=== PATIENT | male | born 1950 | race Caucasian/White ===

== ENCOUNTER 2017-02-21 08:52 | Inpatient (IN) ==
[2017-02-21] MEDS ORDERED: DOCUSATE SODIUM 100 MG CAPSULE PO PRN (08:57)
[2017-02-21] MEDS ORDERED: ZALEPLON 5 MG CAPSULE PO PRN (08:57)
[2017-02-21] MEDS ORDERED: LORazepam 1 MG TABLET PO PRN (08:57)
[2017-02-21] MEDS ORDERED: ONDANSETRON 4 MG/2 ML VIAL IV PRN (08:57)
[2017-02-21] MEDS ORDERED: ACETAMINOPHEN 325 MG TABLET PO PRN (08:57)
[2017-02-21] MEDS ORDERED: SODIUM CHLORIDE 0.45% 1,000 ML IV SCH (09:00)
[2017-02-21] MEDS ORDERED: hydrALAZINE 20 MG/1 ML VIAL IV PRN (09:05)
[2017-02-21] MEDS ORDERED: FUROSEMIDE 40 MG/4 ML VIAL IV ONE (09:05)
[2017-02-21] MEDS ORDERED: POTASSIUM CHLORIDE 20 MEQ TABLET PO ONE (09:06)
[2017-02-21] MEDS ORDERED: LOSARTAN 25 MG TABLET PO SCH (09:30)
[2017-02-21] MEDS: ASPIRIN EC 81 MG TABLET PO SCH (11:12)
[2017-02-21] MEDS: NICOTINE 21 MG/24 HR PATCH TRANSDERM SCH (11:12)
[2017-02-21] MEDS: ATORVASTATIN 80 MG TABLET PO SCH (11:12)
[2017-02-21] MEDS: PANTOPRAZOLE 40 MG TABLET PO SCH (11:13)
[2017-02-21] MEDS: CARVEDILOL 3.125 MG TABLET PO SCH ×2 (11:13→20:59)
[2017-02-21 11:28] LABS: Basophils # 0.1 10*3/uL (0.0-0.2); Basophils % 0.8 % (0.0-0.8); Eosinophils # 0.2 10*3/uL (0.0-0.87); Eosinophils % 1.9 % (0.00-10.9); Hematocrit 40.9 VOL% (42.0-52.0); Hemoglobin 13.9 GM/DL (14.0-18.0); Immature Granulocytes % 2.1 %; Immature Granulocytes Absolute 0.24 #; Lymphocytes # 1.7 10*3/uL (1.4-4.0); Lymphocytes % 14.8 % (21.2-54.2); Mean Corpuscular Hemoglobin 30 PG (27-34); Mean Corpuscular Volume 89.5 FL (87-102); Mean Platelet Volume 9.7 FL (9.6-12.0); Monocytes # 1.5 10*3/uL (0.11-0.8); Neutrophils # 7.8 10*3/uL (1.4-7.4); Neutrophils % 67.4 % (38.7-73.9); Platelet Count 441 T/CUMM (130-400); Red Blood Count 4.57 MC/CUMM (3.8-5.5); Red Cell Distribution Width 14.7 % (9.3-17.3); White Blood Count 11.6 T/CUMM (4-12)
[2017-02-21 11:43] LABS: Apearance,Urine CLEAR (Clear); Bilirubin,Urine Negative (Negative); Blood, Urine Negative (Negative); Glucose,Urine (UA) Negative (Negative); Ketones,Urine Negative (Negative); Nitrite,Urine Negative (Negative); Protein,Urine Negative; RBC,Urine <1 /HPF (0-4); Urine Color Colorless (Yellow); Urine Specific Gravity 1.002 (1.001-1.035); Urine Urobilinogen < 2.0 EU/DL (0.2-1.0); WBC,Urine 4 /HPF (0-6)
[2017-02-21] MEDS: ENOXAPARIN 40 MG/0.4 ML SYRINGE SUBCUT SCH (11:56)
[2017-02-21 12:13] LABS: Blood Urea Nitrogen 8 MG/DL (7-18); Calcium 9.8 MG/DL (8.5-10.1); Cholesterol 144 MG/DL (50-200); Glucose 88 MG/DL (74-106); HDL Cholesterol 63 MG/DL (40-60); Osmolality,Calculated 264.2 MOS/KG (273-304); Potassium 5.1 MMOL/L (3.5-5.1); Risk Ratio 2.29; Sodium 134 MMOL/L (136-145); Triglycerides 93 MG/DL (2-150); Troponin I Only < 0.015 NG/ML (0.00-0.045); VLDL CHOLESTEROL 18.6 MG/DL
--- NOTE | 2017-02-21 12:47 | Order Completion Report ---
See report scanned to EMR
--- NOTE | 2017-02-21 12:48 | History and Physical Update ---
Sedation H&P Update - History and Physical H&P was reviewed, the patient examined and there: are no changes in the patients condition since last H&P was completed. - Dictation Physical: refer to scanned H&P, refer to H&P completed by admitting physician - Physical Exam Mental Status: alert and oriented Heart: other (afib with rate controlled. Exam without change) Lung: clear to auscultation Abdomen: within normal limits Vitals: within normal limits - Sedation Plan for Sedation: moderate Patient Consent: Procedure disscussed with patient and patinet has consented., Risks and benefits were discussed with patient,including infection,, bleeding, injury to surrounding structures, seizure, temporary nerve, Patient understands and accepts potential risks/benefits and agrees to, proceed. ASA Class: III Airway Assessment: Class III: Soft palate, base of uvula visible
--- NOTE | 2017-02-21 12:55 | Event Note ---
Marketing Production Coordinator: Dr. Flaherty Mr. Alanis is a 66 y/o WM who was admitted from the clinic for progressive heart failure symptomatology. He has risk factors significant for: hypertension , tobacco use (smokes daily), family history of premature CAD. He has recently been diagnosed with new onset atrial fibrillation. He has had progressive dyspnea over the past 4-6 weeks and appeared to be in acute decompensated heart failure with NYHA Class 3 symptoms at his clinic visit. Risks and benefits of left heart catheterization were discussed with the patient and it was recommended he be admitted for further evaluation of new onset heart failure with left heart catheterization, selective coronary angiography, and possible percutaneous coronary intervention this afternoon. An echocardiogram is pending. Labs reveal negative troponin, H&H 13.9 and 40.9, potassium 5.1, creatinine 0.8, osmolality 264.2. Lipid profile reveals triglycerides 93, cholesterol 144, LDL 60, HDL 63. Tsh 1.99. His home medications have been continued including aspirin and losartan. He has also been started on low dose beta katt and statin. Blood pressure is currently mildly elevated. We will continue to monitor and adjust medications accordingly. Mr. Alanis denies any needs at the present time. We will continue to monitor and await results from echocardiogram and C.
--- NOTE | 2017-02-21 13:06 | XRay Report ---
XR chest 2V Indication: Shortness of breath Comparison: None available Findings: The heart and mediastinum are normal in size and configuration. The pulmonary vascularity is normal in caliber. Lung volumes are increased with prominent bronchial markings. No lung infiltrates, effusions, pneumothorax or other abnormality is demonstrated. Impression: Chronic lung changes. No acute process. PROCEDURE INTERPRETED AT [facility] DEPARTMENT OF RADIOLOGY Final Report Signed by: Dr. Tunde Kilpatrick
--- NOTE | 2017-02-21 13:20 | Order Completion Report ---
See report scanned to EMR
[2017-02-21] MEDS ORDERED: DIAZEPAM 5 MG TABLET PO ONE (15:00)
[2017-02-21] MEDS ORDERED: diphenhydrAMINE CAP 25 MG CAPSULE PO ONE (15:00)
[2017-02-21] MEDS ORDERED: LIDOCAINE 1% 20 ML VIAL ONE (15:11)
[2017-02-21] MEDS ORDERED: HEPARIN/NACL 0.9% 2 UNITS/ML 1,000 ML IV ONE (15:11)
[2017-02-21] MEDS ORDERED: fentaNYL 100 MCG/2 ML VIAL ONE (15:20)
[2017-02-21] MEDS ORDERED: MIDAZOLAM 2 MG/2 ML VIAL ONE ×2 (15:20→15:28)
[2017-02-21] MEDS ORDERED: ENOXAPARIN 60 MG/0.6 ML SYRINGE ONE (15:35)
[2017-02-21] MEDS ORDERED: BIVALIRUDIN 250 MG VIAL IV ONE (15:35)
[2017-02-21] MEDS ORDERED: EPTIFIBATIDE 20,000 MCG/10 ML VIAL ONE (16:07)
[2017-02-21] MEDS ORDERED: EPTIFIBATIDE 75 MG/100 ML BOTTLE IV ONE (16:09)
[2017-02-21] MEDS ORDERED: ADENOSINE 90 MG/30 ML VIAL IV ONE (16:14)
[2017-02-21] MEDS ORDERED: HEPARIN/NACL 0.9% 2 UNITS/ML 500 ML IV ONE (16:19)
[2017-02-21] MEDS ORDERED: CLOPIDOGREL 300 MG TABLET ONE (16:25)
[2017-02-21] MEDS: POTASSIUM CHLORIDE 20 MEQ TABLET PO SCH (20:59)
[2017-02-21] MEDS ORDERED: ATORVASTATIN 40 MG TABLET PO SCH (21:00)
[2017-02-22 06:45] LABS: Basophils # 0.1 10*3/uL (0.0-0.2); Basophils % 0.8 % (0.0-0.8); Eosinophils # 0.5 10*3/uL (0.0-0.87); Eosinophils % 4.9 % (0.00-10.9); Immature Granulocytes % 1.1 %; Immature Granulocytes Absolute 0.12 #; Lymphocytes # 1.5 10*3/uL (1.4-4.0); Lymphocytes % 14.3 % (21.2-54.2); Mean Corpuscular HGB Conc 33.3 GM/DL (32-36); Mean Corpuscular Hemoglobin 30 PG (27-34); Mean Corpuscular Volume 90.1 FL (87-102); Monocytes # 1.4 10*3/uL (0.11-0.8); Monocytes % 13.5 % (1.7-12.7); Neutrophils % 65.4 % (38.7-73.9); Platelet Count 411 T/CUMM (130-400); Red Blood Count 4.33 MC/CUMM (3.8-5.5); Red Cell Distribution Width 14.7 % (9.3-17.3); White Blood Count 10.7 T/CUMM (4-12)
[2017-02-22 07:09] LABS: Calcium 8.8 MG/DL (8.5-10.1); Potassium 4.8 MMOL/L (3.5-5.1)
--- NOTE | 2017-02-22 08:48 | Sleep Medicine Consult ---
Assessment and Plan (1) Unspecified sleep apnea Status: Acute Assessment and plan: His history certainly is concerning for sleep apnea and we will get him scheduled for sleep evaluation as soon as possible. Thank you for this consult and the opportunity to participate in his care. Given that he lives in [place], follow-up will be scheduled at the [facility] sleep clinic. Current Visit: Yes (2) Essential hypertension Status: Acute Assessment and plan: The prevalence rate for obstructive sleep apnea patients with hypertension is 35 %. That rate can be as high as 80% in patients who require 4 or more medications for blood pressure control. Current Visit: Yes (3) Coronary artery disease Status: Acute Assessment and plan: I reviewed the [place] data from Lancet 2004 with the patient to their understanding. This study proved significant reduction in the risk of fatal and nonfatal cardiac events in patients with severe obstructive sleep apnea compliant with CPAP, in comparison with those noncompliant with CPAP for severe sleep apnea. Current Visit: Yes (4) Atrial fibrillation Status: Acute Assessment and plan: Untreated sleep apnea certainly can be an exacerbating factor to atrial fib. Treatment of obstructive sleep apnea can improve management of atrial fib in these patients. Current Visit: Yes History of Present Illness Chief complaint: Sleep apnea History of present illness: Mr. Alanis is a 66 year old male admitted for evaluation of progressive shortness of breath and lower extremity swelling with [place] heart classification 3 symptomatology. He had recently been diagnosed with new onset atrial fibrillation and underwent heart cath yesterday and required a stent. During his evaluation, it was noted that he had a long history of snoring and abnormal breathing during sleep. Dr. Flaherty contacted me for sleep evaluation. The patient usually retires about 10 PM and awakens between 5:55 in the morning. He awakens multiple times during the night to urinate. Both his daughters, who are nurses, and his notes that he is a loud snore and that he stops breathing during his sleep. They have noted increasing problems and recent years of his increasing daytime fatigue and sleepiness. He has gotten to the point that he sleeps in a recliner because of his breathing. He does have a past medical history of hypertension and a long history of heavy tobacco consumption. At its peak, he was smoking 3-4 packs a day. He resides in [place]. Home Medications Medication Instructions Recorded Confirmed Type Aspirin [Ecotrin] 81 mg PO DAILY 02/21/17 02/21/17 History Cyanocobalamin Tab [Vitamin B12 1,000 mcg PO DAILY 02/21/17 02/21/17 History Tab] Losartan Potassium 50 mg PO DAILY 02/21/17 02/21/17 History Allergies Allergy/AdvReac Type Severity Reaction Status Date / Time No Known Allergies Allergy Unverified 02/21/17 09:16 Review of systems: Otherwise unremarkable from a sleep medicine standpoint. Exam (Pulmonay) H&P - Constitutional Vitals: Period Temp Pulse Resp BP Sys/[place] Pulse Ox Last 24 Hr 97.3 F-97.8 F 71-86 16-20 131-188/74-97 92-97 Exam: He is alert and responsive in no acute distress. Pupils equal round reactive to light and accommodation. Extraocular movements intact. Oropharynx with a class III Mallampati exam. Neck is supple without adenopathy or thyromegaly. No supraclavicular adenopathy is noted. Chest with symmetrical breath sounds without focal wheeze, rhonchi, or rales. Cardiac exam reveals regular rhythm without murmur or gallop. Abdomen soft nontender without palpable hepatosplenomegaly or mass. Extremities are without clubbing, cyanosis, or edema. Neurologically, he is grossly intact. He moves all extremities with good strength and ambulates with a normal gait. Medical,Surgical,& Family Hx - Medical History Cardio: History of: CHF, Hypertension Neurology: History of: Cerebrovascular Accident No history of: Seizures Rheumatology: History of;: Gout - Surgical History HEENT Surgeries: Surgical HX of: Eye Surgery (cataracts) Reproductive Surgeries: Patient denies;: Genitourinary Surgery - Family History Family History: Reports;: Family Cancer (brother and sister), Family Heart Disease (father) - Social History Smoking Status: Current every day smoker Frequency of Alcohol Use: Frequently Type of Drug Use: None Results - Labs CBC & BMP: 02/22/17 05:17 02/22/17 05:17 Lab Results: I have reviewed the past 24 hour labs Labs: TSH was within normal limits. Quality Measures - VTE Contraindication to Pharmacological VTE Prophylaxis: Already on Theraputic Agent , No Prophylaxis Needed Specialty Discharge - Follow Up or Referrals
[2017-02-22] MEDS: POTASSIUM CHLORIDE 20 MEQ TABLET PO SCH ×2 (10:28→21:05)
[2017-02-22] MEDS: CARVEDILOL 3.125 MG TABLET PO SCH (10:28)
[2017-02-22] MEDS: ATORVASTATIN 80 MG TABLET PO SCH (10:28)
[2017-02-22] MEDS: PANTOPRAZOLE 40 MG TABLET PO SCH (10:28)
[2017-02-22] MEDS: CLOPIDOGREL 75 MG TABLET PO SCH (10:28)
[2017-02-22] MEDS: NICOTINE 21 MG/24 HR PATCH TRANSDERM SCH (10:28)
[2017-02-22] MEDS: ENOXAPARIN 40 MG/0.4 ML SYRINGE SUBCUT SCH (10:29)
[2017-02-22] MEDS: FUROSEMIDE 40 MG/4 ML VIAL IV SCH ×2 (10:29→16:28)
[2017-02-22] MEDS: ASPIRIN EC 81 MG TABLET PO SCH (10:31)
[2017-02-22] MEDS: LOSARTAN 50 MG TABLET PO SCH (10:31)
--- NOTE | 2017-02-22 13:05 | Ultrasound Report ---
US arterial duplex LE RT Clinical Information: right groin bruit s/p LHC Comparison: None available Technique: Targeted ultrasound evaluation of the right groin soft tissues and vasculature was performed with grayscale, color Doppler and spectral analysis. Findings: Common femoral artery and vein appear widely patent. There is no evidence of overlying vascular abnormality or pseudoaneurysm. Common femoral vein is compressible with normal phasicity on spectral analysis. There is no evidence of arteriovenous fistula. Common femoral artery also demonstrates a normal waveform. Impression: No evidence of vascular complication following heart catheterization. PROCEDURE INTERPRETED AT [facility] DEPARTMENT OF RADIOLOGY Final Report Signed by: Jose Duque
[2017-02-22] MEDS ORDERED: CARVEDILOL 12.5 MG TABLET PO ONE (13:18)
[2017-02-22] MEDS ORDERED: hydrALAZINE 10 MG TABLET PO SCH (15:00)
--- NOTE | 2017-02-22 17:14 | Cardiology Progress Note ---
Assessment and Plan - Time spent with patient Time spent with patient: Less than 30 minutes Time spent discussing smoking cessation with patient: 3 to 10 minutes (1) Atrial fibrillation Status: Acute Assessment and plan: See plan of care listed below. Current Visit: Yes Qualifiers: Atrial fibrillation type: persistent Qualified Code(s): I48.1 - Persistent atrial fibrillation (2) Congestive heart failure Status: Acute Assessment and plan: See plan of care listed below. Current Visit: Yes Qualifiers: Congestive heart failure type: diastolic Congestive heart failure chronicity: acute Qualified Code(s): I50.31 - Acute diastolic (congestive) heart failure (3) Coronary artery disease Status: Acute Assessment and plan: See plan of care listed below. Current Visit: Yes (4) Essential hypertension Status: Chronic Assessment and plan: See plan of care listed below. Current Visit: Yes (5) Unspecified sleep apnea Status: Acute Assessment and plan: See plan of care listed below. Current Visit: Yes (6) Tobacco abuse Status: Chronic Assessment and plan: See plan of care listed below. Current Visit: Yes Cardiology - PN: Subj Interval history: Bead Preparer: Dr. Flaherty SUMMARY: Mr. Alanis is a 66 y/o WM who was admitted from the clinic for progressive heart failure symptomatology. He has risk factors significant for: hypertension, tobacco use (smokes daily), family history of premature CAD. He has recently been diagnosed with new onset atrial fibrillation. He has had progressive dyspnea over the past 4-6 weeks and appeared to be in acute decompensated heart failure with NYHA Class 3 symptoms at his clinic visit. Risks and benefits of left heart catheterization were discussed with the patient and it was recommended he be admitted for further evaluation of new onset heart failure. FEBRUARY 22, 2017: Mr. Alanis is seen sitting up in the chair at the bedside today. He received a stent to the midRCA by Dr. Flaherty yesterday. He has no complaints this morning and is asking to go home. Echocardiogram done 02/21/17 revealed preserved EF 60%, systolic flattening of the IVS suggesting right sided pressure overload, severe pulmonary hypertension, biatrial enlargement, mild to moderate AI, mild MR, heavy calcification in the thoracic aorta. He has been ambulating without difficulty, but upon inspection of his right groin, he is noted to have a right femoral bruit. We obtained a right groin ultrasound which revealed no post cath vascular complication. He remains slightly volume overloaded and remains on 80mg IV Lasix BID. We will transition him to PO. As sleep medicine plans to evaluate him tonight, we will plan for discharge in the morning. His blood pressure remains uncontrolled and he was noted to have severe pulmonary hypertension on his echo. We are continuing to adjust patient' s medications. Due to his severe pulmonary hypertension, we will maximize his beta katt and continue with ARB. We have also added hydralazine to his medication regimen. Mr. Alanis's right groin dressing was removed and his cath site is without bleeding or hematoma. Bruit is stable. Femoral pulse is 3+. Distal pulses are present and palpable. Groin precautions were discussed and the patient and his verbalize understanding. As long as he remains stable through the night, we will anticipate discharge first thing in the morning to follow up with Dr. Flaherty in 2-3 weeks. REVIEW OF SYSTEMS: CARDIAC: Denies chest pain. RESPIRATORY: Denies shortness of breath. IMPRESSION/PLAN: - PERSISTENT ATRIAL FIBRILLATION: Continues to be in atrial fibrillation with well controlled rate. Started on anticoagulation with Eliquis 5mg po BID. Continue beta katt. I have stressed the importance of avoiding caffeine and tobacco and he verbalizes understanding. - CONGESTIVE HEART FAILURE: Slowly improving. Will transition his Lasix to PO. - CORONARY ARTERY DISEASE: LHC on 02/21/17 revealed two-vessel CAD. Patient is status post successful PCI of the mid RCA. He was also noted to have a moderate range highly calcified mid LAD stenosis of 60%. He will continue with risk factor modification and dual antiplatelet therapy for minimum of 1 year. Clopidogrel was used as the second antiplatelet in anticipation of full anticoagulation for atrial fibrillation. CHADSVASC score is 4. Since he will need anticoagulation, we will stop his aspirin and place him on Eliquis 5mg po BID. - HYPERTENSION: Uncontrolled. We are continuing to adjust patient's medications. Due to his severe pulmonary hypertension, we will maximize his beta katt and continue with ARB. We have also added hydralazine to his medication regimen. Will continue to monitor and adjust accordingly. - UNSPECIFIED SLEEP APNEA: Patient has been seen in consultation by sleep medicine and will undergo sleep evaluation tonight. - TOBACCO ABUSE: Greater than 5 minutes was spent discussing the harmful effects of tobacco and the need for cessation. Exam (Progress Note) - Constitutional Vitals: Period Temp Pulse Resp BP Sys/[place] Pulse Ox Last 24 Hr 97.3 F-98.4 F 71-86 16-20 131-188/74-97 92-97 Exam: General appearance: Appears well. Pleasant and cooperative. Overweight, no acute distress. Head exam: Present: normal inspection, normocephalic, atraumatic. Absent: hematoma, laceration Eye exam: Present: EOMI. Absent: conjunctival injection, nystagmus, periorbital swelling, scleral icterus, laceration to eyelids, jaundice Pupils: Present: PERRL. Absent: constricted, dilated, fixed, irregular, unequal ENT exam: Present: normal exam, normal external ear exam, mucous membranes moist. Neck exam: Present: normal inspection, midline trachea. Absent: masses, lymphadenopathy, tenderness, thyromegaly, carotid bruit Respiratory exam: Present: clear to auscultation bilaterally. Absent: accessory muscle use, chest wall tenderness, rales, rhonchi, wheezing. Cardiovascular exam: Present: Irregular rhythm, well controlled rate. 2/7 systolic murmur consistent with MR. Absent: gallop, JVD, rubs GI/Abdominal exam: Present: normal bowel sounds, soft. Absent: distended, firm , hernia, mass, tenderness. Extremities exam: Present: Normal Gait, No Clubbing, No Cyanosis, Upper Extr. Pulses 2+, Lower Extr. Pulses 2+, 1+ BLE edema. Capillary refill less than 3 seconds. Musculoskeletal: Present: No Fluid Collection, No Pain, Normal Range of Motion Back exam: Present: normal inspection. Absent: muscle spasm, vertebral tenderness Neurological exam: Present: awake, alert, oriented X3, Moves all extremities well without hemiparesis or paralysis. Grossly intact without resting or essential tremor Psychiatric exam: Present: normal affect, normal mood Skin exam: Present: normal color, warm, dry, intact. Absent: cyanosis, diaphoretic, rash, urticaria Right groin: Open to air. No bleeding or hematoma. Stable bruit. Femoral pulse 3 +. Distal pulses present and palpable. Result/EKG - Labs CBC & BMP: 02/22/17 05:17 02/22/17 05:17 Lab Results: I have reviewed the past 24 hour labs Labs: Laboratory Results - last 24 hr 02/22/17 02/22/17 05:17 05:17 WBC 10.7 RBC 4.33 Hgb 13.0 L Hct 39.0 L MCV 90.1 MCH 30 MCHC 33.3 RDW 14.7 Plt Count 411 H MPV 10.0 Neut % (Auto) 65.4 Lymph % (Auto) 14.3 L [place] % (Auto) 13.5 H Eos % (Auto) 4.9 Baso % (Auto) 0.8 Neut # (Auto) 7.0 Lymph # (Auto) 1.5 [place] # (Auto) 1.4 H Eos # (Auto) 0.5 Baso # (Auto) 0.1 Immature Gran % 1.1 Nucleated RBC % 0.0 Immature Gran # 0.12 Nucleated RBCs # 0.00 Immature Plt Fraction 0.0 Sodium 136 Potassium 4.8 Chloride 101 Carbon Dioxide 30 Anion Gap 9.8 BUN 9 Creatinine 0.90 GFR Calculation 98 BUN/Creatinine Ratio 10.00 Glucose 89 Calculated Osmolality 269.0 L Calcium 8.8 - EKG EKG results: interpreted by me EKG shows: atrial fibrillation Quality Measures - VTE Contraindication to Pharmacological VTE Prophylaxis: Already on Theraputic Agent , No Prophylaxis Needed Specialty Discharge - Follow Up or Referrals Follow up with: Livier Flaherty DO [Physician] - 2 Weeks (Follow up with CBC, BMP w/ Mg, and EKG. )
--- NOTE | 2017-02-22 17:28 | Discharge Summary ---
Hospital Course - Hospital Course Hospital Course: Ethylbenzene Cracking Supervisor: Dr. Flaherty SUMMARY: Mr. Alanis is a 66 y/o WM who was admitted from the clinic for progressive heart failure symptomatology. He has risk factors significant for: hypertension, tobacco use (smokes daily), family history of premature CAD. He has recently been diagnosed with new onset atrial fibrillation. He has had progressive dyspnea over the past 4-6 weeks and appeared to be in acute decompensated heart failure with NYHA Class 3 symptoms at his clinic visit. It was recommended he be admitted for further evaluation of new onset heart failure. LHC on 02/21/17 revealed two-vessel CAD. Patient is status post successful PCI of the mid RCA. Echocardiogram done 02/21/17 revealed preserved EF 60%, systolic flattening of the IVS suggesting right sided pressure overload , severe pulmonary hypertension, biatrial enlargement, mild to moderate AI, mild MR, heavy calcification in the thoracic aorta. Post cath, he was noted to have a right femoral bruit. Ultrasound revealed no post cath vascular complication. Sleep medicine saw him in consultation and sleep evaluation was performed the night before discharge. He was started on appropriate medical therapy for his new onset CHF, atrial fibrillation, and coronary artery disease. Due to his severe pulmonary hypertension, we will maximize his beta katt. We have also added hydralazine to his medication regimen. He will need dual antiplatelet therapy for a minimum of 1 year. Clopidogrel was used as the second antiplatelet in anticipation of full anticoagulation for atrial fibrillation. CHADSVASC score is 4. Since he will need anticoagulation, we stopped his aspirin and placed him on Eliquis 5mg po BID. He has diuresed well during hospitalization and will continue on PO lasix at discharge. Greater than 5 minutes was spent discussing the harmful effects of tobacco and the need for cessation. I have stressed the importance of avoiding caffeine and tobacco related to his atrial fibrillation and he verbalizes understanding. Groin precautions were discussed and the patient and his verbalize understanding. Mr. Alanis's right groin dressing was removed and his cath site is without bleeding or hematoma. Bruit is stable. Femoral pulse is 3+. Distal pulses are present and palpable. Mr. Alanis is agreeable to proceeding with tobacco cessation with the aid of [employer] [facility] [employer]. I have sent in prescriptions for a 6 week supply of 21mg/24 hour patches followed by 2 week supply of 14mg/24hour patches and a 2 week supply of 7mg/24 hour patches. He will follow up with Dr. Flaherty in 1-2 weeks with CBC, BMP w/ Mg, and EKG. He has been instructed to monitor his weight daily and notify his physician if he gains more than 2-3# in 24 hours or 5# in 1 week. - Time spent with patient Time with patient DS: Greater than 30 minutes (due to assessment, plan, documentation, medication review, and discussion with patient/) Time spent discussing smoking cessation with patient: more than 10 minutes Diagnosis - Discharge Diagnosis (1) Atrial fibrillation Status: Acute (2) Congestive heart failure Status: Acute (3) Coronary artery disease Status: Acute (4) Essential hypertension Status: Chronic (5) Unspecified sleep apnea Status: Acute (6) Tobacco abuse Status: Chronic Specialty Discharge - Follow Up or Referrals Follow up with: Livier Flaherty DO [Physician] - 1 Week (Follow up with CBC, BMP w/ Mg, and EKG in 1-2 weeks. ) Discharge Plan - Discharge Data Disposition: Disch To Home/Self Care Condition at Discharge: Stable Discharge Diet: heart healthy Activity: no lifting (Do not lift over 5 pounds x1 week. ) Hygiene: may shower (Do not submerge cath site beneath water x 1 week. Keep site clean/dry and monitor for s/s of infection. ) Weight Bearing at Discharge: full weight bearing Driving: not for (24 hours) Contact your physician if you experience:: fever over 101, Difficulty voiding, Redness or swelling, Nausea/Vomiting, Shortness of breath, Bleeding, pain uncontrolled by pain medications - Discharge Medications New Atorvastatin [Lipitor] 80 mg PO DAILY #30 tablet Carvedilol [Coreg] 25 mg PO BID #60 tablet Furosemide Tab [Lasix Tab] 80 mg PO BID DIURETIC #60 tablet Nicotine 21 mg/24 Hr Patch [Nicoderm CQ 21 mg/24 hr Patch] 1 patch TRANSDERM DAILY #42 patch Nicotine [Nicotine 14 mg/24 Hr Patch] 1 patch TRANSDERM DAILY #14 patch Potassium Chloride Cap/Tab [K Dur] 20 meq PO BID #60 tablet hydrALAZINE TAB [Apresoline Tab] 25 mg PO TID #90 tablet Apixaban [Eliquis] 5 mg PO BID #60 tablet Clopidogrel [Plavix] 75 mg PO DAILY #30 tablet Nicotine 7 mg/24 Hr Patch [Nicoderm CQ 7 mg/24 hr Patch] 1 patch TRANSDERM DAILY #14 patch Continue Cyanocobalamin Tab [Vitamin B12 Tab] 1,000 mcg PO DAILY Losartan Potassium 50 mg PO DAILY Discontinued Aspirin [Ecotrin] 81 mg PO DAILY - Follow Up or Referral Follow Up: Livier Flaherty DO [Physician] - 2 Weeks (Follow up with CBC, BMP w/ Mg, and EKG. ) - Forms/Instructions Instructions: Left Heart Catheterization (DC), Heart Healthy Diet (GEN), Cigarette Smoking and Your Health (GEN), Coronary Intravascular Stent Placement (DC), How to Stop Smoking, Clother In (GEN) Exam - Constitutional Vitals: Period Temp Pulse Resp BP Sys/[place] Pulse Ox Last 24 Hr 97.3 F-98.4 F 71-84 16-20 131-188/74-97 92-97 Exam: General appearance: Appears well. Pleasant and cooperative. Overweight, no acute distress. Head exam: Present: normal inspection, normocephalic, atraumatic. Absent: hematoma, laceration Eye exam: Present: EOMI. Absent: conjunctival injection, nystagmus, periorbital swelling, scleral icterus, laceration to eyelids, jaundice Pupils: Present: PERRL. Absent: constricted, dilated, fixed, irregular, unequal ENT exam: Present: normal exam, normal external ear exam, mucous membranes moist. Neck exam: Present: normal inspection, midline trachea. Absent: masses, lymphadenopathy, tenderness, thyromegaly, carotid bruit Respiratory exam: Present: clear to auscultation bilaterally. Absent: accessory muscle use, chest wall tenderness, rales, rhonchi, wheezing. Cardiovascular exam: Present: Irregular rhythm, well controlled rate. 2/7 systolic murmur consistent with MR. Absent: gallop, JVD, rubs GI/Abdominal exam: Present: normal bowel sounds, soft. Absent: distended, firm , hernia, mass, tenderness. Extremities exam: Present: Normal Gait, No Clubbing, No Cyanosis, Upper Extr. Pulses 2+, Lower Extr. Pulses 2+, 1+ BLE edema. Capillary refill less than 3 seconds. Musculoskeletal: Present: No Fluid Collection, No Pain, Normal Range of Motion Back exam: Present: normal inspection. Absent: muscle spasm, vertebral tenderness Neurological exam: Present: awake, alert, oriented X3, Moves all extremities well without hemiparesis or paralysis. Grossly intact without resting or essential tremor Psychiatric exam: Present: normal affect, normal mood Skin exam: Present: normal color, warm, dry, intact. Absent: cyanosis, diaphoretic, rash, urticaria Right groin: Open to air. No bleeding or hematoma. Stable bruit. Femoral pulse 3 +. Distal pulses present and palpable. Discharge Results Labs on day of discharge: Labs from last 24 hours 02/22/17 02/22/17 05:17 05:17 WBC 10.7 RBC 4.33 Hgb 13.0 L Hct 39.0 L MCV 90.1 MCH 30 MCHC 33.3 RDW 14.7 Plt Count 411 H MPV 10.0 Neut % (Auto) 65.4 Lymph % (Auto) 14.3 L [place] % (Auto) 13.5 H Eos % (Auto) 4.9 Baso % (Auto) 0.8 Neut # (Auto) 7.0 Lymph # (Auto) 1.5 [place] # (Auto) 1.4 H Eos # (Auto) 0.5 Baso # (Auto) 0.1 Immature Gran % 1.1 Nucleated RBC % 0.0 Immature Gran # 0.12 Nucleated RBCs # 0.00 Immature Plt Fraction 0.0 Sodium 136 Potassium 4.8 Chloride 101 Carbon Dioxide 30 Anion Gap 9.8 BUN 9 Creatinine 0.90 GFR Calculation 98 BUN/Creatinine Ratio 10.00 Glucose 89 Calculated Osmolality 269.0 L Calcium 8.8 DS: Provider Date of admission: 02/21/17 09:16 Primary care physician: Rain Alan NP Attending physician on admission: Livier Flaherty DO Consults: 02/21/17 16:42 Consult to Cardiac Rehabilitation [CONS] Routine Reason for Cardiac Rehabilitation: Risk Factor Modification Other Consult Comment: Evaluate and recommend 02/21/17 16:45 Consult to Physician [CONS] Routine Comment: ROSA Consulting Provider: Deborah Styles 02/21/17 17:13 Consult to Sleep Center [CONS] Routine Reason for Sleep Center: Sleep Center Physician Consult Comment: ROSA Discharging clinician: TODD Zimmerman Expected date of discharge: 02/23/17
[2017-02-22] MEDS: hydrALAZINE 25 MG TABLET PO SCH (21:05)
[2017-02-22] MEDS: APIXABAN 5 MG TABLET PO SCH (21:05)
[2017-02-22] MEDS: CARVEDILOL 25 MG TABLET PO SCH (21:05)
[2017-02-23] MEDS ORDERED: FUROSEMIDE 80 MG TABLET PO SCH (08:00)
[2017-02-23 08:39] VITALS: BP 138/72
[2017-02-23] MEDS: hydrALAZINE 25 MG TABLET PO SCH (08:57)
[2017-02-23] MEDS: LOSARTAN 50 MG TABLET PO SCH (08:57)
[2017-02-23] MEDS: POTASSIUM CHLORIDE 20 MEQ TABLET PO SCH (08:57)
[2017-02-23] MEDS: ATORVASTATIN 80 MG TABLET PO SCH (08:57)
[2017-02-23] MEDS: APIXABAN 5 MG TABLET PO SCH (08:57)
[2017-02-23] MEDS: CLOPIDOGREL 75 MG TABLET PO SCH (08:57)
[2017-02-23] MEDS: NICOTINE 21 MG/24 HR PATCH TRANSDERM SCH (08:58)
[2017-02-23] MEDS: PANTOPRAZOLE 40 MG TABLET PO SCH (08:58)
[2017-02-23] MEDS: CARVEDILOL 25 MG TABLET PO SCH (08:58)
== END 2017-02-23 11:03 | disposition home or self-care (01) | DRG 246 ==
LOC: N.TELEN 09:16
PROVIDERS: ADMIT Internal Medicine Cardiovascular Disease; ATTEND Internal Medicine Cardiovascular Disease

== ENCOUNTER 2017-04-05 11:30 | Inpatient (IN) ==
[2017-04-05] MEDS ORDERED: ZALEPLON 5 MG CAPSULE PO PRN (11:42)
[2017-04-05] MEDS ORDERED: MAGNESIUM SULF RIDER 4 GM in PREMIX 1 EACH IV PRN (11:42)
[2017-04-05] MEDS ORDERED: MAGNESIUM SULF RIDER 2 GM in PREMIX 1 EACH IV PRN (11:42)
[2017-04-05] MEDS ORDERED: POTASSIUM CHLORIDE RIDER 10 MEQ in PREMIX 1 EACH IV PRN (11:42)
[2017-04-05] MEDS ORDERED: DOCUSATE SODIUM 100 MG CAPSULE PO PRN (11:42)
[2017-04-05] MEDS ORDERED: ONDANSETRON 4 MG/2 ML VIAL IV PRN (11:42)
[2017-04-05] MEDS: ALBUTEROL 2.5 MG/3 ML NEB RESP TX SCH ×2 (13:24→19:16)
[2017-04-05] MEDS: LEVOFLOXACIN INJ 750 MG in PREMIX 1 EACH IV SCH (14:43)
[2017-04-05] MEDS: BENZONATATE 100 MG CAPSULE PO SCH ×2 (14:44→21:07)
[2017-04-05] MEDS: guaiFENesin/DM ER 600-30 MG TABLET PO SCH ×2 (14:44→21:07)
[2017-04-05 15:05] LABS: Basophils % 0.5 % (0.0-0.8); Eosinophils # 0.8 10*3/uL (0.0-0.87); Hematocrit 40.3 VOL% (42.0-52.0); Hemoglobin 13.9 GM/DL (14.0-18.0); Immature Granulocytes % 0.5 %; Immature Granulocytes Absolute 0.04 #; Lymphocytes # 1.6 10*3/uL (1.4-4.0); Lymphocytes % 19.6 % (21.2-54.2); Mean Corpuscular HGB Conc 34.5 GM/DL (32-36); Mean Corpuscular Hemoglobin 30 PG (27-34); Mean Corpuscular Volume 85.9 FL (87-102); Mean Platelet Volume 10.3 FL (9.6-12.0); Monocytes # 0.8 10*3/uL (0.11-0.8); Monocytes % 9.3 % (1.7-12.7); Neutrophils # 4.9 10*3/uL (1.4-7.4); Neutrophils % 60.1 % (38.7-73.9); Platelet Count 348 T/CUMM (130-400); Red Blood Count 4.69 MC/CUMM (3.8-5.5); White Blood Count 8.1 T/CUMM (4-12)
[2017-04-05 15:25] LABS: Calcium 8.9 MG/DL (8.5-10.1); Osmolality,Calculated 255.2 MOS/KG (273-304); Potassium 4.5 MMOL/L (3.5-5.1)
[2017-04-05] MEDS: NICOTINE 21 MG/24 HR PATCH TRANSDERM PRN (15:35)
[2017-04-05] MEDS: FUROSEMIDE 80 MG TABLET PO SCH (15:35)
[2017-04-05] MEDS: CARVEDILOL 25 MG TABLET PO SCH (17:20)
[2017-04-05] MEDS: APIXABAN 5 MG TABLET PO SCH (21:07)
[2017-04-05] MEDS: POTASSIUM CHLORIDE 20 MEQ TABLET PO SCH (21:07)
[2017-04-05] MEDS: PRAMIPEXOLE 0.25 MG TABLET PO SCH (21:07)
[2017-04-05] MEDS: ATORVASTATIN 80 MG TABLET PO SCH (21:10)
[2017-04-06] MEDS: ALBUTEROL 2.5 MG/3 ML NEB RESP TX SCH ×4 (00:40→19:38)
[2017-04-06] MEDS: CARVEDILOL 25 MG TABLET PO SCH ×2 (08:21→16:18)
[2017-04-06] MEDS: LOSARTAN 50 MG TABLET PO SCH (08:22)
[2017-04-06] MEDS: FUROSEMIDE 80 MG TABLET PO SCH ×2 (08:22→16:18)
[2017-04-06] MEDS: BENZONATATE 100 MG CAPSULE PO SCH ×3 (08:22→21:25)
[2017-04-06] MEDS: POTASSIUM CHLORIDE 20 MEQ TABLET PO SCH ×2 (08:22→21:24)
[2017-04-06] MEDS: APIXABAN 5 MG TABLET PO SCH ×2 (08:22→21:24)
[2017-04-06] MEDS: CYANOCOBALAMIN 500 MCG TABLET PO SCH (08:22)
[2017-04-06] MEDS: guaiFENesin/DM ER 600-30 MG TABLET PO SCH ×2 (08:22→21:24)
[2017-04-06] MEDS: CLOPIDOGREL 75 MG TABLET PO SCH (08:22)
[2017-04-06] MEDS: LEVOFLOXACIN INJ 750 MG in PREMIX 1 EACH IV SCH (08:25)
[2017-04-06] MEDS ORDERED: diphenhydrAMINE CAP 25 MG CAPSULE PO PRN (11:37)
[2017-04-06] MEDS: NICOTINE 21 MG/24 HR PATCH TRANSDERM PRN (14:24)
[2017-04-06] MEDS: ACETAMINOPHEN 325 MG TABLET PO PRN (18:30)
[2017-04-06] MEDS: PRAMIPEXOLE 0.25 MG TABLET PO SCH (21:25)
[2017-04-06] MEDS: ATORVASTATIN 80 MG TABLET PO SCH (21:25)
[2017-04-07] MEDS: ALBUTEROL 2.5 MG/3 ML NEB RESP TX SCH ×4 (01:02→19:00)
[2017-04-07 07:39] LABS: Albumin 3.2 G/DL (3.4-5.0); Bilirubin,Total 0.9 MG/DL (0.2-1.0); Calcium 8.7 MG/DL (8.5-10.1); Osmolality,Calculated 256.1 MOS/KG (273-304); Potassium 4.3 MMOL/L (3.5-5.1); Total Protein 6.3 G/DL (6.4-8.3)
[2017-04-07] MEDS: BENZONATATE 100 MG CAPSULE PO SCH ×3 (09:11→21:09)
[2017-04-07] MEDS: LOSARTAN 50 MG TABLET PO SCH (09:11)
[2017-04-07] MEDS: APIXABAN 5 MG TABLET PO SCH ×2 (09:11→21:10)
[2017-04-07] MEDS: CARVEDILOL 25 MG TABLET PO SCH ×2 (09:11→16:36)
[2017-04-07] MEDS: POTASSIUM CHLORIDE 20 MEQ TABLET PO SCH ×2 (09:11→21:09)
[2017-04-07] MEDS: CLOPIDOGREL 75 MG TABLET PO SCH (09:11)
[2017-04-07] MEDS: guaiFENesin/DM ER 600-30 MG TABLET PO SCH ×2 (09:11→21:09)
[2017-04-07] MEDS: PANTOPRAZOLE 40 MG TABLET PO SCH (09:11)
[2017-04-07] MEDS: CYANOCOBALAMIN 500 MCG TABLET PO SCH (09:11)
[2017-04-07] MEDS: FUROSEMIDE 80 MG TABLET PO SCH ×2 (09:11→16:36)
[2017-04-07] MEDS: LEVOFLOXACIN 750 MG TABLET PO SCH (09:12)
[2017-04-07] MEDS: methylPREDNISolone SOD SUC 40 MG/1 ML VIAL IV SCH ×2 (09:12→21:09)
[2017-04-07 09:27] LABS: Allen Test Positive
[2017-04-07 09:30] LABS: ABG Base Excess 4.1 MMOL/L (-2.5-2.5); ABG HCO3 27.5 MMOL/L (20-26); ABG Oxygen Saturation 89.6 % (95-100); ABG PCO2 37.4 MM HG (35-48); ABG PH 7.485 (7.35-7.45); ABG PO2 51.7 MM HG (80-95); ABG TCO2 28.7 MMOL/L (23-27)
[2017-04-07] MEDS: NICOTINE 21 MG/24 HR PATCH TRANSDERM PRN (13:33)
[2017-04-07] MEDS: ACETAMINOPHEN 325 MG TABLET PO PRN (21:10)
[2017-04-07] MEDS: PRAMIPEXOLE 0.25 MG TABLET PO SCH (21:10)
[2017-04-07] MEDS: ATORVASTATIN 80 MG TABLET PO SCH (21:10)
[2017-04-08] MEDS: ALBUTEROL 2.5 MG/3 ML NEB RESP TX SCH ×4 (00:21→20:33)
[2017-04-08] MEDS: CARVEDILOL 25 MG TABLET PO SCH ×2 (09:26→16:48)
[2017-04-08] MEDS: APIXABAN 5 MG TABLET PO SCH ×2 (09:27→21:52)
[2017-04-08] MEDS: FUROSEMIDE 80 MG TABLET PO SCH ×2 (09:27→16:48)
[2017-04-08] MEDS: LOSARTAN 50 MG TABLET PO SCH (09:27)
[2017-04-08] MEDS: POTASSIUM CHLORIDE 20 MEQ TABLET PO SCH ×2 (09:27→21:52)
[2017-04-08] MEDS: LEVOFLOXACIN 750 MG TABLET PO SCH (09:28)
[2017-04-08] MEDS: guaiFENesin/DM ER 600-30 MG TABLET PO SCH ×2 (09:28→21:52)
[2017-04-08] MEDS: PANTOPRAZOLE 40 MG TABLET PO SCH (09:28)
[2017-04-08] MEDS: CLOPIDOGREL 75 MG TABLET PO SCH (09:28)
[2017-04-08] MEDS: CYANOCOBALAMIN 500 MCG TABLET PO SCH (09:29)
[2017-04-08] MEDS: methylPREDNISolone SOD SUC 40 MG/1 ML VIAL IV SCH ×2 (09:29→21:50)
[2017-04-08] MEDS: BENZONATATE 100 MG CAPSULE PO SCH ×3 (09:29→21:52)
[2017-04-08 11:00] LABS: Eosinophils,Pleural Fluid 70 %; Lymphocytes,Pleural Fluid 13 %; Monocytes,Pleural Fluid 7 %; Neutrophils,Pleural Fluid 10 %
[2017-04-08 11:06] LABS: RBC,Pleural Fluid 134 T/CUMM
[2017-04-08] MEDS: NICOTINE 21 MG/24 HR PATCH TRANSDERM PRN (14:57)
[2017-04-08] MEDS: ATORVASTATIN 80 MG TABLET PO SCH (21:53)
[2017-04-08] MEDS: PRAMIPEXOLE 0.25 MG TABLET PO SCH (21:53)
[2017-04-09] MEDS: ALBUTEROL 2.5 MG/3 ML NEB RESP TX SCH ×4 (01:26→19:56)
[2017-04-09 05:40] LABS: Basophils % 0.1 % (0.0-0.8); Eosinophils % 0.1 % (0.00-10.9); Hematocrit 35.7 VOL% (42.0-52.0); Hemoglobin 12.3 GM/DL (14.0-18.0); Immature Granulocytes Absolute 0.14 #; Lymphocytes # 0.9 10*3/uL (1.4-4.0); Lymphocytes % 6.4 % (21.2-54.2); Mean Corpuscular HGB Conc 34.5 GM/DL (32-36); Mean Corpuscular Hemoglobin 29 PG (27-34); Monocytes # 0.6 10*3/uL (0.11-0.8); Monocytes % 3.9 % (1.7-12.7); Neutrophils # 12.5 10*3/uL (1.4-7.4); Neutrophils % 88.5 % (38.7-73.9); Platelet Count 346 T/CUMM (130-400); Red Blood Count 4.25 MC/CUMM (3.8-5.5); Red Cell Distribution Width 14.1 % (9.3-17.3); White Blood Count 14.1 T/CUMM (4-12)
[2017-04-09 06:17] LABS: Calcium 8.9 MG/DL (8.5-10.1); Magnesium 2.2 MG/DL (1.8-2.4); Osmolality,Calculated 262.1 MOS/KG (273-304); Potassium 4.6 MMOL/L (3.5-5.1)
[2017-04-09] MEDS: LOSARTAN 50 MG TABLET PO SCH (08:28)
[2017-04-09] MEDS: CARVEDILOL 25 MG TABLET PO SCH ×2 (08:28→16:22)
[2017-04-09] MEDS: APIXABAN 5 MG TABLET PO SCH ×2 (08:28→21:32)
[2017-04-09] MEDS: POTASSIUM CHLORIDE 20 MEQ TABLET PO SCH ×2 (08:28→21:33)
[2017-04-09] MEDS: FUROSEMIDE 80 MG TABLET PO SCH ×2 (08:28→16:21)
[2017-04-09] MEDS: CLOPIDOGREL 75 MG TABLET PO SCH (08:29)
[2017-04-09] MEDS: guaiFENesin/DM ER 600-30 MG TABLET PO SCH ×2 (08:29→21:32)
[2017-04-09] MEDS: LEVOFLOXACIN 750 MG TABLET PO SCH (08:29)
[2017-04-09] MEDS: CYANOCOBALAMIN 500 MCG TABLET PO SCH (08:30)
[2017-04-09] MEDS: PANTOPRAZOLE 40 MG TABLET PO SCH (08:30)
[2017-04-09] MEDS: BENZONATATE 100 MG CAPSULE PO SCH ×3 (08:30→21:32)
[2017-04-09] MEDS: methylPREDNISolone SOD SUC 40 MG/1 ML VIAL IV SCH ×2 (08:31→21:29)
[2017-04-09] MEDS: NICOTINE 21 MG/24 HR PATCH TRANSDERM PRN (14:59)
[2017-04-09] MEDS: ATORVASTATIN 80 MG TABLET PO SCH (21:32)
[2017-04-09] MEDS: PRAMIPEXOLE 0.25 MG TABLET PO SCH (21:32)
[2017-04-10] MEDS: ALBUTEROL 2.5 MG/3 ML NEB RESP TX SCH ×3 (00:17→14:05)
[2017-04-10 06:05] LABS: Basophils % 0.1 % (0.0-0.8); Hematocrit 37.7 VOL% (42.0-52.0); Hemoglobin 12.8 GM/DL (14.0-18.0); Immature Granulocytes Absolute 0.14 #; Lymphocytes % 6.5 % (21.2-54.2); Mean Corpuscular Hemoglobin 29 PG (27-34); Mean Corpuscular Volume 84.9 FL (87-102); Mean Platelet Volume 10.4 FL (9.6-12.0); Monocytes # 0.7 10*3/uL (0.11-0.8); Monocytes % 4.8 % (1.7-12.7); Neutrophils # 12.9 10*3/uL (1.4-7.4); Neutrophils % 87.6 % (38.7-73.9); Platelet Count 398 T/CUMM (130-400); Red Blood Count 4.44 MC/CUMM (3.8-5.5); Red Cell Distribution Width 14.3 % (9.3-17.3); White Blood Count 14.7 T/CUMM (4-12)
[2017-04-10 06:37] LABS: Magnesium 2.3 MG/DL (1.8-2.4); Osmolality,Calculated 270.5 MOS/KG (273-304); Potassium 4.8 MMOL/L (3.5-5.1)
[2017-04-10] MEDS: FUROSEMIDE 80 MG TABLET PO SCH (08:36)
[2017-04-10] MEDS: CARVEDILOL 25 MG TABLET PO SCH (08:36)
[2017-04-10] MEDS: LOSARTAN 50 MG TABLET PO SCH (08:37)
[2017-04-10] MEDS: APIXABAN 5 MG TABLET PO SCH (08:37)
[2017-04-10] MEDS: LEVOFLOXACIN 750 MG TABLET PO SCH (08:37)
[2017-04-10] MEDS: POTASSIUM CHLORIDE 20 MEQ TABLET PO SCH (08:37)
[2017-04-10] MEDS: CLOPIDOGREL 75 MG TABLET PO SCH (08:38)
[2017-04-10] MEDS: guaiFENesin/DM ER 600-30 MG TABLET PO SCH (08:38)
[2017-04-10] MEDS: PANTOPRAZOLE 40 MG TABLET PO SCH (08:38)
[2017-04-10] MEDS: methylPREDNISolone SOD SUC 40 MG/1 ML VIAL IV SCH (08:39)
[2017-04-10] MEDS: CYANOCOBALAMIN 500 MCG TABLET PO SCH (08:39)
[2017-04-10] MEDS: BENZONATATE 100 MG CAPSULE PO SCH ×2 (08:39→15:52)
[2017-04-10] MEDS ORDERED: predniSONE 20 MG TABLET PO SCH (09:30)
[2017-04-10 15:34] VITALS: BP 118/65
== END 2017-04-10 15:52 | disposition home or self-care (01) | DRG 190 ==
LOC: N.2E 11:58
PROVIDERS: ADMIT Internal Medicine Cardiovascular Disease; ATTEND Internal Medicine Cardiovascular Disease

== ENCOUNTER 2017-08-03 12:32 | Inpatient (IN) ==
[2017-08-03] MEDS ORDERED: ACETAMINOPHEN 325 MG TABLET PO PRN (14:18)
[2017-08-03] MEDS ORDERED: ONDANSETRON 4 MG/2 ML VIAL IV PRN (14:18)
[2017-08-03 15:16] LABS: Basophils % 0.5 % (0.0-0.8); Eosinophils # 0.1 10*3/uL (0.0-0.87); Eosinophils % 0.6 % (0.00-10.9); Immature Granulocytes % 0.6 %; Immature Granulocytes Absolute 0.05 #; Mean Corpuscular HGB Conc 35.5 GM/DL (32-36); Mean Corpuscular Hemoglobin 30 PG (27-34); Mean Corpuscular Volume 84.7 FL (87-102); Mean Platelet Volume 10.4 FL (9.6-12.0); Monocytes # 1.3 10*3/uL (0.11-0.8); Monocytes % 14.6 % (1.7-12.7); Neutrophils # 6.4 10*3/uL (1.4-7.4); Neutrophils % 72.7 % (38.7-73.9); Platelet Count 286 T/CUMM (130-400); Red Blood Count 3.66 MC/CUMM (3.8-5.5); Red Cell Distribution Width 14.1 % (9.3-17.3); White Blood Count 8.8 T/CUMM (4-12)
[2017-08-03] MEDS ORDERED: POTASSIUM CHLORIDE 20 MEQ TABLET PO ONE ×2 (15:20→17:37)
[2017-08-03 15:24] LABS: INR 1.3; PT Patient Result 13.4 SECS
[2017-08-03 15:37] LABS: Albumin 3.7 G/DL (3.4-5.0); Bilirubin,Direct 0.42 MG/DL (0.0-0.20); Bilirubin,Indirect 0.6 MG/DL (0.0-1.0); Calcium 8.5 MG/DL (8.5-10.1); Osmolality,Calculated 242.2 MOS/KG (273-304); Total Protein 6.8 G/DL (6.4-8.3)
[2017-08-03 15:52] LABS: Potassium 1.9 MMOL/L (3.5-5.1)
[2017-08-03 16:00] LABS: Risk Ratio 1.14; VLDL CHOLESTEROL 8.2 MG/DL
[2017-08-03 16:00] LABS: Apearance,Urine CLEAR (Clear); Bilirubin,Urine Negative (Negative); Blood, Urine Negative (Negative); Glucose,Urine (UA) Negative (Negative); Ketones,Urine Negative (Negative); Nitrite,Urine Negative (Negative); Protein,Urine Negative; Squamous Epithelial Cell,Urine Occasional /HPF (0-10); Urine Color Yellow (Yellow); Urine Specific Gravity 1.002 (1.001-1.035); Urine Urobilinogen < 2.0 EU/DL (0.2-1.0); WBC,Urine <1 /HPF (0-6)
[2017-08-03] MEDS ORDERED: POTASSIUM CHLORIDE 20 MEQ/15 ML UDCUP PO ONE (16:03)
[2017-08-03] MEDS ORDERED: SODIUM CHLORIDE 0.9% 250 ML IV ONE (16:05)
[2017-08-03 16:06] LABS: Barbiturates Screen,Urine Negative (Negative); Benzodiazepines Screen,Urine Negative (Negative); Cannabinoid Screen,Urine Negative (Negative); Opiate Screen,Urine Negative (Negative); Phencyclidine Screen,Urine Negative (Negative)
[2017-08-03] MEDS ORDERED: PIPERACILLIN/TAZOBACTAM 3,375 MG in SODIUM CHLORIDE 0.9% 100 ML IV SCH (17:00)
[2017-08-03] MEDS ORDERED: GLUCAGON 1 MG VIAL IM PRN (17:02)
[2017-08-03] MEDS ORDERED: DEXTROSE 50% 25 GM/50 ML VIAL IV PRN (17:02)
[2017-08-03 17:24] LABS: Creatinine,Urine Random 25 MG/DL; Total Protein,Urine Random 6 MG/DL; Urea Nitrogen, Urine Random 197 MG/DL
[2017-08-03] MEDS: CARVEDILOL 25 MG TABLET PO SCH (17:42)
[2017-08-03] MEDS: INSULIN REGULAR 100 UNIT/ML SUBCUT SCH (17:44)
[2017-08-03 18:09] LABS: Calcium 8.4 MG/DL (8.5-10.1); Osmolality,Calculated 242.1 MOS/KG (273-304); Troponin I Only < 0.015 NG/ML (0.00-0.045)
[2017-08-03 18:11] LABS: Potassium 2.1 MMOL/L (3.5-5.1)
[2017-08-03 19:54] LABS: Calcium 8.3 MG/DL (8.5-10.1); Osmolality,Calculated 245.1 MOS/KG (273-304)
[2017-08-03] MEDS: POTASSIUM CHLORIDE IV SCH (20:27)
[2017-08-03] MEDS: SODIUM ACETATE IV SCH (20:27)
[2017-08-03] MEDS: SODIUM CHLORIDE 0.45% IV SCH (20:27)
[2017-08-03] MEDS: POTASSIUM CHLORIDE 20 MEQ/15 ML UDCUP PO SCH (20:57)
[2017-08-03] MEDS: APIXABAN 5 MG TABLET PO SCH (20:57)
[2017-08-03] MEDS: ATORVASTATIN 80 MG TABLET PO SCH (20:57)
[2017-08-03] MEDS: LEVOFLOXACIN INJ 750 MG in PREMIX 1 EACH IV SCH (20:58)
[2017-08-03 22:59] LABS: Calcium 8.4 MG/DL (8.5-10.1); Osmolality,Calculated 252.5 MOS/KG (273-304); Potassium 2.7 MMOL/L (3.5-5.1)
[2017-08-03] MEDS: POTASSIUM CHLORIDE 20 MEQ TABLET PO SCH (23:12)
[2017-08-04] MEDS: INSULIN REGULAR 100 UNIT/ML SUBCUT SCH ×3 (00:21→13:00)
[2017-08-04 00:42] LABS: Calcium 8.2 MG/DL (8.5-10.1); Osmolality,Calculated 245.8 MOS/KG (273-304); Potassium 3.4 MMOL/L (3.5-5.1)
[2017-08-04 02:35] LABS: Calcium 8.1 MG/DL (8.5-10.1); Osmolality,Calculated 249.5 MOS/KG (273-304); Potassium 2.7 MMOL/L (3.5-5.1)
[2017-08-04 05:59] LABS: Basophils # 0.1 10*3/uL (0.0-0.2); Basophils % 0.7 % (0.0-0.8); Eosinophils # 0.1 10*3/uL (0.0-0.87); Eosinophils % 1.1 % (0.00-10.9); Hematocrit 28.1 VOL% (42.0-52.0); Hemoglobin 9.8 GM/DL (14.0-18.0); Immature Granulocytes % 0.4 %; Immature Granulocytes Absolute 0.03 #; Lymphocytes # 1.1 10*3/uL (1.4-4.0); Lymphocytes % 13.1 % (21.2-54.2); Mean Corpuscular HGB Conc 34.9 GM/DL (32-36); Mean Corpuscular Hemoglobin 30 PG (27-34); Mean Corpuscular Volume 86.2 FL (87-102); Mean Platelet Volume 10.8 FL (9.6-12.0); Monocytes # 1.3 10*3/uL (0.11-0.8); Monocytes % 16.3 % (1.7-12.7); Neutrophils # 5.6 10*3/uL (1.4-7.4); Neutrophils % 68.4 % (38.7-73.9); Platelet Count 272 T/CUMM (130-400); Red Blood Count 3.26 MC/CUMM (3.8-5.5); Red Cell Distribution Width 14.1 % (9.3-17.3); White Blood Count 8.1 T/CUMM (4-12)
[2017-08-04 06:30] LABS: Calcium 8.2 MG/DL (8.5-10.1); Osmolality,Calculated 252.2 MOS/KG (273-304); Potassium 2.8 MMOL/L (3.5-5.1)
[2017-08-04 06:36] LABS: Troponin I Only < 0.015 NG/ML (0.00-0.045)
[2017-08-04 06:40] LABS: Free T4 (Free Thyroxine) 1.35 NG/DL (0.76-1.46); Thyroid Stimulating Hormone 2.73 uIU/ml (0.358-3.74)
[2017-08-04 07:15] LABS: Eosinophils 1 % (0-10); Lymphocytes 12 % (20-55); Segmented Neutrophils 76 % (50-85); Total Cells Counted 100
[2017-08-04 07:16] LABS: Acanthocytes Few; Hypochromasia 1+; Microcytosis 1+; Ovalocytes Slight; Platelet Estimate Normal
[2017-08-04] MEDS: POTASSIUM CHLORIDE IV SCH ×2 (07:30→18:51)
[2017-08-04] MEDS: SODIUM ACETATE IV SCH ×2 (07:30→18:51)
[2017-08-04] MEDS: SODIUM CHLORIDE 0.45% IV SCH ×2 (07:30→18:51)
[2017-08-04 08:28] LABS: Calcium 8.4 MG/DL (8.5-10.1); Osmolality,Calculated 254.2 MOS/KG (273-304); Potassium 2.7 MMOL/L (3.5-5.1)
[2017-08-04] MEDS ORDERED: predniSONE 20 MG TABLET PO SCH (09:00)
[2017-08-04] MEDS ORDERED: ASPIRIN EC 81 MG TABLET PO SCH (09:00)
[2017-08-04] MEDS ORDERED: LEVOFLOXACIN 750 MG TABLET PO SCH (09:00)
[2017-08-04] MEDS ORDERED: PANTOPRAZOLE 40 MG TABLET PO SCH (09:00)
[2017-08-04] MEDS: POTASSIUM CHLORIDE 20 MEQ/15 ML UDCUP PO SCH ×2 (10:24→22:02)
[2017-08-04] MEDS: LOSARTAN 50 MG TABLET PO SCH (10:24)
[2017-08-04] MEDS: POTASSIUM CHLORIDE 20 MEQ TABLET PO SCH (10:25)
[2017-08-04] MEDS: CYANOCOBALAMIN 500 MCG TABLET PO SCH (10:25)
[2017-08-04] MEDS: predniSONE 20 MG TABLET PO SCH (10:25)
[2017-08-04] MEDS: CARVEDILOL 25 MG TABLET PO SCH ×2 (10:26→17:30)
[2017-08-04] MEDS: APIXABAN 5 MG TABLET PO SCH ×2 (10:26→22:02)
[2017-08-04] MEDS: CLOPIDOGREL 75 MG TABLET PO SCH (10:26)
[2017-08-04] MEDS: PANTOPRAZOLE 40 MG TABLET PO SCH (10:26)
[2017-08-04 12:22] LABS: Calcium 8.8 MG/DL (8.5-10.1); Osmolality,Calculated 250.5 MOS/KG (273-304); Potassium 3.3 MMOL/L (3.5-5.1)
[2017-08-04] MEDS: ATORVASTATIN 80 MG TABLET PO SCH (22:02)
[2017-08-04] MEDS: LEVOFLOXACIN INJ 750 MG in PREMIX 1 EACH IV SCH (22:03)
[2017-08-05 06:02] LABS: Basophils % 0.4 % (0.0-0.8); Eosinophils # 0.1 10*3/uL (0.0-0.87); Eosinophils % 1.3 % (0.00-10.9); Hematocrit 26.8 VOL% (42.0-52.0); Hemoglobin 9.4 GM/DL (14.0-18.0); Immature Granulocytes % 0.6 %; Immature Granulocytes Absolute 0.05 #; Lymphocytes # 1.6 10*3/uL (1.4-4.0); Lymphocytes % 17.5 % (21.2-54.2); Mean Corpuscular HGB Conc 35.1 GM/DL (32-36); Mean Corpuscular Hemoglobin 30 PG (27-34); Mean Corpuscular Volume 86.2 FL (87-102); Mean Platelet Volume 10.8 FL (9.6-12.0); Monocytes # 1.3 10*3/uL (0.11-0.8); Monocytes % 14.8 % (1.7-12.7); Neutrophils # 5.9 10*3/uL (1.4-7.4); Neutrophils % 65.4 % (38.7-73.9); Platelet Count 256 T/CUMM (130-400); Red Blood Count 3.11 MC/CUMM (3.8-5.5); Red Cell Distribution Width 15.1 % (9.3-17.3)
[2017-08-05 06:30] LABS: Calcium 8.5 MG/DL (8.5-10.1); Osmolality,Calculated 261.5 MOS/KG (273-304); Potassium 3.4 MMOL/L (3.5-5.1)
[2017-08-05] MEDS: POTASSIUM CHLORIDE IV SCH (06:32)
[2017-08-05] MEDS: SODIUM ACETATE IV SCH (06:32)
[2017-08-05] MEDS: SODIUM CHLORIDE 0.45% IV SCH (06:32)
[2017-08-05] MEDS: POTASSIUM CHLORIDE 20 MEQ/15 ML UDCUP PO SCH ×2 (08:51→21:04)
[2017-08-05] MEDS: PANTOPRAZOLE 40 MG TABLET PO SCH (08:51)
[2017-08-05] MEDS: POTASSIUM CHLORIDE 20 MEQ TABLET PO SCH (08:51)
[2017-08-05] MEDS: CARVEDILOL 25 MG TABLET PO SCH ×2 (08:52→17:28)
[2017-08-05] MEDS: CYANOCOBALAMIN 500 MCG TABLET PO SCH (08:52)
[2017-08-05] MEDS: CLOPIDOGREL 75 MG TABLET PO SCH (08:52)
[2017-08-05] MEDS: LOSARTAN 50 MG TABLET PO SCH (08:52)
[2017-08-05] MEDS: predniSONE 20 MG TABLET PO SCH (08:52)
[2017-08-05] MEDS: APIXABAN 5 MG TABLET PO SCH ×2 (08:53→21:04)
[2017-08-05 11:16] LABS: Adrenocorticotropic Hormone 18 pg/mL
[2017-08-05 12:42] LABS: ABG Base Excess 10.1 MMOL/L (-2.5-2.5); ABG HCO3 33.8 MMOL/L (20-26); ABG Oxygen Saturation 95.2 % (95-100); ABG PCO2 41.6 MM HG (35-48); ABG PO2 73.1 MM HG (80-95); ABG TCO2 30.8 MMOL/L (23-27); Allen Test Positive
[2017-08-05] MEDS: INSULIN REGULAR 100 UNIT/ML SUBCUT SCH (17:54)
[2017-08-05] MEDS: MULTIVITAMIN (CENTRUM) TABLET PO SCH (21:03)
[2017-08-05] MEDS: ATORVASTATIN 80 MG TABLET PO SCH (21:04)
[2017-08-05] MEDS: LEVOFLOXACIN INJ 750 MG in PREMIX 1 EACH IV SCH (21:04)
[2017-08-05] MEDS ORDERED: TEMAZEPAM 15 MG CAPSULE PO PRN (23:05)
[2017-08-05] MEDS: THIAMINE 200 MG/2 ML VIAL IV SCH (23:23)
[2017-08-05] MEDS ORDERED: LEVALBUTEROL 1.25 MG/3 ML NEB RESP TX ONE (23:30)
[2017-08-06 07:43] LABS: Basophils % 0.4 % (0.0-0.8); Eosinophils # 0.2 10*3/uL (0.0-0.87); Eosinophils % 1.9 % (0.00-10.9); Hematocrit 28.4 VOL% (42.0-52.0); Hemoglobin 9.6 GM/DL (14.0-18.0); Immature Granulocytes % 0.6 %; Immature Granulocytes Absolute 0.07 #; Lymphocytes # 1.9 10*3/uL (1.4-4.0); Mean Corpuscular HGB Conc 33.8 GM/DL (32-36); Mean Corpuscular Hemoglobin 30 PG (27-34); Mean Corpuscular Volume 89.3 FL (87-102); Mean Platelet Volume 10.8 FL (9.6-12.0); Monocytes # 1.4 10*3/uL (0.11-0.8); Monocytes % 12.6 % (1.7-12.7); Neutrophils # 7.6 10*3/uL (1.4-7.4); Neutrophils % 67.5 % (38.7-73.9); Platelet Count 271 T/CUMM (130-400); Red Blood Count 3.18 MC/CUMM (3.8-5.5); White Blood Count 11.3 T/CUMM (4-12)
[2017-08-06 07:58] LABS: Calcium 8.8 MG/DL (8.5-10.1); Osmolality,Calculated 263.4 MOS/KG (273-304); Potassium 4.1 MMOL/L (3.5-5.1)
[2017-08-06] MEDS ORDERED: Umeclidinium Brm/Vilanterol Tr [Anoro Ellipta] 1 PUFF INH SCH (09:00)
[2017-08-06] MEDS: POTASSIUM CHLORIDE 20 MEQ/15 ML UDCUP PO SCH (09:04)
[2017-08-06] MEDS: THIAMINE 200 MG/2 ML VIAL IV SCH (09:05)
[2017-08-06] MEDS: LOSARTAN 50 MG TABLET PO SCH (09:05)
[2017-08-06] MEDS: PANTOPRAZOLE 40 MG TABLET PO SCH (09:05)
[2017-08-06] MEDS: CYANOCOBALAMIN 500 MCG TABLET PO SCH (09:05)
[2017-08-06] MEDS: MULTIVITAMIN (CENTRUM) TABLET PO SCH (09:05)
[2017-08-06] MEDS: POTASSIUM CHLORIDE 20 MEQ TABLET PO SCH (09:05)
[2017-08-06] MEDS: CARVEDILOL 25 MG TABLET PO SCH (09:05)
[2017-08-06] MEDS: APIXABAN 5 MG TABLET PO SCH (09:06)
[2017-08-06] MEDS: CLOPIDOGREL 75 MG TABLET PO SCH (09:06)
[2017-08-06] MEDS: predniSONE 20 MG TABLET PO SCH (09:06)
[2017-08-06] MEDS ORDERED: SPIRONOLACTONE 25 MG TABLET PO SCH (09:30)
[2017-08-06] MEDS ORDERED: ALBUTEROL/IPRATROPIUM 3 ML NEB RESP TX PRN (10:13)
[2017-08-06 12:32] VITALS: BP 129/65
[2017-08-06 15:11] LABS: Renin Activity 4.3 ng/mL/h
[2017-08-07] MEDS ORDERED: THIAMINE 200 MG/2 ML VIAL IV SCH (22:00)
== END 2017-08-06 14:00 | disposition home health service (06) | DRG 640 ==
LOC: EDUNIT# → N.ED 12:32 → N.EDINP 13:30 → N.ICU 14:50 → N.5E 08-05 13:50
PROVIDERS: ADMIT Internal Medicine; ATTEND Internal Medicine